=== PATIENT | male | born 1965 | race Caucasian/White ===

== ENCOUNTER 2018-04-30 09:57 | Emergency (ER) | payer SELFPAY ==
[2018-04-30 09:58] VITALS: BP 138/80; PULSE 81; RESP 18; TEMP 36.5; O2SAT 99; BMI 23.1
--- NOTE | 2018-04-30 10:03 | RAD_ITS ---
STUDY: X-RAY - RIGHT HAND REASON FOR EXAM: Male, 53 years old. Pain overlying the third fourth and fifth metacarpals following an injury. TECHNIQUE: 3 view(s) of the hand. COMPARISON: None. FINDINGS: Normal radiocarpal articulation. Normal distal radioulnar joint. Normal visualized carpal bones. Normal carpal articulations Normal carpometacarpal articulation of the thumb. Normal second through fifth carpometacarpal joints. Normal metacarpi. Normal metacarpophalangeal joint of the thumb. Normal interphalangeal joint of the thumb. Normal proximal and distal phalanges of the thumb. Normal metacarpophalangeal joints of the second through fifth fingers. Normal proximal and distal interphalangeal joints of the second through fifth fingers. Normal phalanges of the second through fifth fingers. The soft tissue structures are unremarkable. RAD/Hand Min 3 Views IMPRESSION: Normal x-ray examination of the hand. Electronically Signed: Rick Brown MD at 10:33 EST Tel [phone], Service support ,
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
== END 2018-04-30 10:50 | disposition home or self-care (01) ==
PROVIDERS: Emergency Provider Emergency Medicine; Family Provider Family Medicine; PCP Family Medicine
DX: S60.221A Contusion of right hand, initial encounter (principal); V19.9XXA Pedal cyclist (driver) (passenger) injured in unspecified traffic accident, initial encounter; Y93.55 Activity, bike riding; Y92.9 Unspecified place or not applicable; F17.200 Nicotine dependence, unspecified, uncomplicated
CPT/HCPCS: 73130; 99282

== ENCOUNTER 2024-02-27 23:26 | Emergency (ER) | payer MEDICAID, SELFPAY ==
[2024-02-27 23:26] VITALS: BP 100/56; PULSE 69; RESP 18; TEMP 36.9; O2SAT 100; BMI 21.7
--- NOTE | 2024-02-27 23:37 | RAD_ITS ---
INDICATION: Injury/Pain EXAMINATION/TECHNIQUE: X-RAY - LEFT XR Tibia/Fibula 2 Views COMPARISON: None. FINDINGS: 4 views of the left tib-fib. BONES: Normal anatomic alignment without evidence of fracture or subluxation. No concerning bony lesion or abnormal sclerosis to suggest lesion. JOINTS: No significant degenerative change. SOFT TISSUES: Unremarkable. RAD/Tibia & Fibula 2 Views IMPRESSION: No acute osseous abnormality of the left tib-fib. Electronically Signed: Jeff Rivera MD at 1:37 EDT ,
[2024-02-27] MEDS: HYDROcodone Bitartrate/Apap 5/325 Tablet PO (23:43)
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
[2024-02-28 01:12] VITALS: BP 100/56; PULSE 64; RESP 18; TEMP 36.9; O2SAT 100
== END 2024-02-28 01:15 | disposition home or self-care (01) ==
LOC: ED 02-28 00:33
PROVIDERS: Emergency Provider Surgery; Visit Provider Surgery
DX: S80.12XA Contusion of left lower leg, initial encounter (principal); F17.200 Nicotine dependence, unspecified, uncomplicated; V18.0XXA Pedal cycle driver injured in noncollision transport accident in nontraffic accident, initial encounter
CPT/HCPCS: 73590; 99282

== ENCOUNTER 2024-05-31 11:21 | Emergency (ER) | payer MEDICAID, SELFPAY ==
[2024-05-31 11:22] VITALS: PULSE 61; RESP 20; TEMP 36.4; O2SAT 100; BMI 19.8
[2024-05-31 11:27] VITALS: BP 134/98
--- NOTE | 2024-05-31 11:50 | ED.VIS.BACK ---
HPI History of Present Illness Chief Complaint: Back Informant: patient Onset/Context/Timing Onset: Today and Yesterday Context: Gradual Onset Injury: repetitive motion Timing: Continuous Quality: Sharp Location: Lumbar Current Severity: Moderate Maximum Severity: Moderate Associated Symptoms Associated Symptoms: Negative for Numbness, Tingling, Radiation to Right Leg, Radiation to Left Leg, Fever, Abdominal Pain, Dysuria, Unable to Ambulate, Unable to Transfer, Urinary Retention, Urinary Incontinence, Constipation or Fecal Incontinence Narrative Narrative: 59-year-old male no seen past medical history. No prior back surgery. Has been shoveling snow earlier in the week and since has developed lower back pain. Worse with movement. No fall or trauma. No fever. No bowel or bladder retention or incontinence. States his back just feels tight. It does not radiate to his legs. He denies any weakness or numbness in his legs. Prior similar symptoms: No Recent Illness/Hospitalization: No PFSH PFSH Medical History no medical history no medical history Home Medications ?Medication ?Instructions ?Recorded ?Last Taken ?Type metaxalone 800 mg tablet 800 mg PO TID 7 days #21 tabs 05/31/24 Unknown Rx Allergy/AdvReac Type Severity Reaction Status Date / Time No Known Allergies Allergy Verified 05/31/24 11:22 Social History Smoking Status: Current every day smoker tobacco type: cigarettes ROS ROS ED ROS Narrative Denies recent illness. Constitutional Constitutional ED: Denies chills or fever(s) Eyes Eyes: Denies blurry vision ENT ENT ED: Denies ear pain Cardiovascular Cardiovascular: Denies chest pain Respiratory/Chest Respiratory/Chest: Denies dyspnea or dyspnea on exertion Gastrointestinal Gastrointestinal: Denies abdominal pain Genitourinary Genitourinary ED: Denies dysuria or hematuria Musculoskeletal Musculoskeletal: Reports back pain; Denies arthralgias, myalgias or neck pain Integumentary Denies abscess or Abrasions Neurologic Neurologic: Denies headache(s) Psychiatric Psychiatric: Denies anxiety or depression Endocrine Endocrinology: Denies cold intolerance or heat intolerance Hematologic/Lymphatic Hematologic/Lymphatic: Denies easy bleeding, easy bruising or lymphadenopathy Allergic/Immunologic Allergic/Immunologic ED: Denies mouth swelling, tongue swelling or urticaria EXAM Physical Exam Narrative Exam Narrative: 59-year-old male sitting upright in bed. Vital signs are stable afebrile. Significant other with him. H EENT exam pupils round react light. Motions are intact. Mytrex membranes. Neck nontender. Lungs clear equal symmetrical. Heart regular rate and rhythm rate about 60 no murmur. Chest wall ribs nontender. Abdomen is soft, nontender, nondistended, normal bowel sounds without peritoneal signs. Patient moving all 4 extremities. Neurovascularly intact. 5 out of 5 mri special procedures technologist strength. Dorsi plantarflexion intact. Negative straight leg raise bilaterally. No cauda equina. No saddle anesthesia. Normal medial thigh sensation. Neurologically is awake and alert no focal motor deficits. No loss of sensation. Back he has reproducible pain along the lumbar spine and paralumbar soft tissue. No signs of ecchymosis or bruising no redness or warmth. Const Vital Signs: 05/31/24 11:22 05/31/24 11:27 Temperature 97.5 F L Temperature Source Axillary Pulse Rate 61 Respiratory Rate 20 H Blood Pressure 134/98 H Blood Pressure Mean 110 Pulse Ox 100 Oxygen Delivery Method Room Air Positive well nourished and well developed; Negative for obese, cachectic, contractures or unkempt General Appearance ED: well developed and NAD; Negative for unkempt, cachectic, contractures or pallor Nutritional Appearance: Negative for cachectic or obese HEENT Reports moist mucous membranes Negative for trauma or tenderness Eyes PERRL and EOMs intact bilaterally Neck no lymphadenopathy, supple and no JVD General: Negative for tenderness Thyroid: Negative for other Resp normal respiratory effort and clear to auscultation bilaterally Effort and Inspection: Negative for pain with movement Auscultation: Negative for rales, rhonchi, wheezes or diminished lung sounds Cardio regular rate, regular rhythm, S1 normal heart sound, S2 normal heart sound and no murmurs Palpation: Negative for palpable S3 Rate: Negative for bradycardia or tachycardic Rhythm: Negative for abnormal rhythm GI normal to inspection, nondistended, normoactive bowel sounds, soft to palpation, non-tender, non-distended and no masses Palpation: Negative for tender, guarding or rebound tenderness present Back/Spine Negative for normal to inspection or no thoracic nor lumbar tenderness Back/Spine Narrative: Lumbar and paralumbar soft tissue tenderness. No ecchymosis or bruising. No redness or warmth. General Back: Negative for CVA tenderness Cervical Spine: Negative for cervical spine tenderness Thoracic Spine / Upper Back: Negative for paraspinal muscle tenderness Lumbar Spine / Lower Back: straight leg raise negative bilaterally Extremity normal to inspection and no clubbing, cyanosis or edema Extremity Narrative: No cauda equina. Normal strength. Normal sensation. No saddle anesthesia. General Extremety ED: Negative for edema or tenderness General Extremity: Negative for edema Neuro oriented x3 and no sensory deficits noted Sensorium / Orientation: alert; Negative for confused, lethargic or stuporous Motor Exam: strength 5/5 throughout Psych mental status grossly normal Appearance: Negative for unkempt Skin no rashes or lesions noted and no wounds General Skin Exam: Negative for jaundice or pallor Lesions: No lesion noted Rashes: No rashes noted Trauma: Negative for abrasion or puncture Wounds: Negative for wounds noted MDM MDM MDM Narrative Medical decision making narrative: 59-year-old male with lumbar strain muscle spasm on his lower back from shoveling snow. There is been no trauma I do not think he needs x-rays. There is no signs of cauda equina or acute disc there is no radiation to his legs or weakness or numbness. I do not think he needs an MRI. He does not need labs. I be treated with IM morphine and Toradol. P.o. Zofran. And reassessed. Repeat exam patient doing well at 12:55 PM. He feels much better after the pain medication. Again his lower extremities are neurovascularly intact. His exam otherwise is unchanged and he feels much better. He was able to ambulate to the restroom. I discussed with both he and his . They are comfortable him being discharged home. Motrin and Tylenol for pain. Hot shower, warm bath and massage. Skelaxin and follow-up as needed. History & Record Review Discussion w/independent historian: Patient and Family Discharge Plan Triage Chief Complaint: Back ED Provider: Mak Myers Dx/Rx/DC Orders Clinical Impression: Acute lumbar myofascial strain, Back muscle spasm Instructions: ED Back Pain (Acute or Chronic), ED Back Spasm, No Trauma, ED Back Sprain/Strain Prescriptions: New metaxalone 800 mg tablet 800 mg PO TID 7 Days Qty: 21 0RF Primary Care Provider: Care Physician,No Primary Referrals: Yung Rodas MD [Med Staff - Seamer Operator] - 1 Week if not improving Care Physician,No Primary [Primary Care Provider] - Activity Restrictions/Additional Instructions: The supplements no strained your lower back causing muscle spasms. Hot shower, warm bath, massage. Motrin for pain and inflammation and Tylenol. The muscle relaxant Skelaxin 3 times a day. You will not notice a big difference for 2 to 3 days and it should start improving greatly. Follow-up with local primary care physician if not improving or return if worse. Do not drink or drive today because of your pain medication we gave you in the emergency department. Print Language: Swazi Disposition Disposition: Home, Self Care
[2024-05-31] MEDS: Ondansetron ODT 4 MG Tablet PO (11:57)
[2024-05-31] MEDS: morphine 10 MG/ML Syringe IM (11:58)
[2024-05-31] MEDS: Ketorolac 60 MG/2 ML Vial IM (11:59)
== END 2024-05-31 13:07 | disposition home or self-care (01) ==
PROVIDERS: Emergency Provider Emergency Medicine; Visit Provider Emergency Medicine
DX: S39.012A Strain of muscle, fascia and tendon of lower back, initial encounter (principal); M62.830 Muscle spasm of back; X50.9XXA Other and unspecified overexertion or strenuous movements or postures, initial encounter; Y93.H1 Activity, digging, shoveling and raking; F17.210 Nicotine dependence, cigarettes, uncomplicated
CPT/HCPCS: 96372; 99285; A4216

== ENCOUNTER 2024-11-09 14:48 | Emergency (ER) | payer MEDICAID, SELFPAY ==
[2024-11-09 14:49] VITALS: BP 107/82; PULSE 72; RESP 18; TEMP 37.1; O2SAT 98; BMI 23.1
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
--- NOTE | 2024-11-09 15:28 | CT_ITS ---
PROCEDURE: ABDOMEN/PELVIS W IV CONT ONLY 11/09/2024 REASON FOR EXAM: ABDOMINAL PAIN TECHNIQUE: ABDOMEN/PELVIS W IV CONT ONLY Coronal and Sagittal reconstruction series were provided. CONTRAST: 100 mL of Isovue 370 One or more dose reduction techniques were used (e.g., Automated exposure control, adjustment of the mA and/or kV according to patient size, use of iterative reconstruction technique. RADIATION DOSE SUMMARY: DLP: 562 mGycm COMPARISON: None FINDINGS: Limited sections of the lung bases demonstrate no focal pulmonary mass or consolidations. Right base subsegmental atelectasis. The liver, spleen, pancreas, and both adrenal glands demonstrate no acute findings. 1.4 x 1.2 cm cyst within the liver. Additional smaller hypodensities are noted throughout the liver too small to accurately characterize. Hepatomegaly to 17.5 cm. The gallbladder is unremarkable. The stomach is unremarkable. Scattered small bowel loop inflammation predominantly about the left hemidiaphragm may reflect enteritis. No bowel obstruction. The appendix is not clearly identified, although there are no secondary signs of appendicitis. No colonic obstruction. There is no free air or significant free fluid. No hydronephrosis. 1.3 cm cyst within the inferior pole of the right kidney. No renal stones. Extensive thickened urinary bladder wall which may reflect cystitis vs nondistention; consider correlation with urinalysis. The pelvic structures are intact. There is no solid pelvic mass. Calcifications and hydrocele within bilateral testicular fossa/postoperative changes. No significant lymphadenopathy. The aorta and IVC demonstrate no acute findings. Mild atherosclerosis of the abdominal vasculature. Mild anterior wedge deformity of the L1 vertebral body of indeterminate acuity. Otherwise no acute osseous fractures or dislocations. CT/Abdomen/Pelvis W IV Cont ONLY IMPRESSION: Extensively thickened urinary bladder wall which may reflect cystitis vs nondis tention; consider correlation with urinalysis. Scattered small bowel loop inflammation predominantly about the left hemidiaphr agm may reflect enteritis. No bowel obstruction. Reading Location: [id number]
--- NOTE | 2024-11-09 15:30 | EDS_ITS ---
HPI History of Present Illness Chief Complaint: Male Pain/Injury Informant: patient Pain Onset: Days (4) Context: Gradual Onset Timing: Continuous Worsened by: Coughing, movement, standing Relieved by: Rest Narrative Narrative: Patient presents with inguinal hernias that have been getting worse over the past 4 days. Patient states his pain is worse with standing. Patient states that he notices increased swelling in his inguinal area whenever he stands up. Patient states his pain is worse with coughing and with movement. Patient describes her pain as aching. Patient states it is better with rest and laying flat. Patient states it is worse on the left than the right but it is in both inguinal areas. Patient denies any fevers but admits to some subjective chills. Patient denies any nausea or vomiting. PFSH PFSH Medical History no medical history no medical history Home Medications ?Medication ?Instructions ?Recorded ?Last Taken ?Type metaxalone 800 mg tablet 800 mg PO TID 7 days #21 tab s 05/31/24 Unknown Rx Allergy/AdvReac Type Severity Reaction Status Date / Time No Known Allergies Allergy Verified 11/09/24 14:50 Surgical History Hx of appendectomy Social History (Updated 11/09/24 @ 15:59 by Anahy Solis) household members: significant other current occupational status: employed Smoking Status: Current every day smoker tobacco type: cigarettes substance use type: marijuana ROS ROS ED Constitutional Constitutional ED: Reports chills and subjective; Denies fever(s) Eyes Eyes: Denies blurry vision or change in vision ENT ENT ED: Denies rhinorrhea or sore throat Cardiovascular Cardiovascular: Denies chest pain or palpitations Respiratory/Chest Respiratory/Chest: Denies cough or dyspnea Gastrointestinal Gastrointestinal: Denies nausea or vomiting Genitourinary Genitourinary ED: Denies dysuria or hematuria Musculoskeletal Musculoskeletal: Denies back pain or neck pain Integumentary Denies abscess or rash Neurologic Neurologic: Denies headache(s) or weakness Allergic/Immunologic Allergic/Immunologic ED: Denies mouth swelling or urticaria EXAM Physical Exam Const Vital Signs: 11/09/24 14:49 Temperature 98.7 F Temperature Source Oral Pulse Rate 72 Respiratory Rate 18 Blood Pressure 107/82 H Blood Pressure Mean 90 Pulse Ox 98 Positive well nourished and well developed General Appearance ED: well developed and NAD HEENT Reports moist mucous membranes normocephalic and atraumatic Neck supple and no JVD Resp normal respiratory effort and clear to auscultation bilaterally Cardio regular rate and regular rhythm GI non-distended Palpation: soft Narrative: There is tenderness over the inguinal canals bilaterally. There are no incarcerated hernias palpated. There are inguinal hernias palpated bilaterally but they are easily reduced. Extremity normal to inspection Neuro oriented x3, CN's II-XII intact bilaterally, moves all extremities, no focal motor deficits and no sensory deficits noted Sensorium / Orientation: alert Motor Exam: strength 5/5 throughout Psych mental status grossly normal MDM MDM MDM Narrative Medical decision making narrative: Differential diagnosis includes incarcerated hernia, strangulated hernia, bowel obstruction, dehydration, electrolyte abnormality, and urinary tract infection. CT scan of the abdomen and pelvis will be obtained to assess for bowel obstruction, and inguinal hernias. CBC will be obtained to assess for leukocytosis and anemia. Basic metabolic profile will be obtained to assess for electrolyte abnormality and renal function. Urinalysis will be obtained to ass ess for urinary tract infection and hematuria. Lab Data Attestation: I reviewed the patient's lab results. Lab results narrative: CBC was reviewed. There is a mild anemia with a hemoglobin of 12.1 and hematocrit 34.5. Basic metabolic profile was reviewed and was essentially within normal limits. Urinalysis was reviewed. There is no evidence of urinary tract infection or hematuria. Labs: Laboratory Results - last 24 hr 11/09/24 11/09/24 15:54 15:58 WBC 5.3 RBC 3.70 L Hgb 12.1 L Hct 34.5 L MCV 93.2 MCH 32.7 H MCHC 35.1 RDW Std Deviation 45.0 H RDW Coeff of Mirtha 13.2 Plt Count 188 MPV 8.8 Immature Gran % (Auto) 0.400 Neut % (Auto) 57.4 Lymph % (Auto) 31.5 [place] % (Auto) 7.7 Eos % (Auto) 2.4 Baso % (Auto) 0.6 Absolute Neuts (auto) 3.1 Absolute Lymphs (auto) 1.68 Nucleated RBC % 0 Sodium 138 Potassium 3.3 Chloride 106 Carbon Dioxide 22.7 Anion Gap 9 BUN 12 Creatinine 0.86 Estim Creat Clear Calc 110.10 Est GFR (MDRD) Non-Af 98 BUN/Creatinine Ratio 13.3 Glucose 119 H Calcium 8.6 Urine Color Yellow Urine Clarity Sl. Cloudy Urine pH 6.0 Ur Specific [place] 1.030 Urine Protein 30 H Urine Glucose (UA) Normal Urine Ketones Negative Urine Occult Blood 10 H Urine Nitrite Negative Urine Bilirubin Negative Urine Urobilinogen 1 H Ur Leukocyte Esterase 25 H Urine RBC 0-5 SEEN Urine WBC 0-5 SEEN Ur Squamous Epith Cells 0-5 SEEN Urine Bacteria 1+ Urine Mucus 3+ Radiography Diagnostic Testing: Clinical Impression(s) from Imaging Studies Abdomen/Pelvis CT 11/09/24 15:28 IMPRESSION: Extensively thickened urinary bladder wall which may reflect cystitis vs nondistention; consider correlation with urinalysis. Scattered small bowel loop inflammation predominantly about the left hemidiap hragm may reflect enteritis. No bowel obstruction. Reading Location: [facility] CT scan of the abdomen and pelvis was obtained. There is a thickened urinary bladder which may reflect cystitis or nondistention. There is small bilateral inflammation of the left hemidiaphragm that may reflect enteritis. There is no evidence of obstruction. There are no inguinal hernias noted. This was interpreted by the radiologist and was also independently reviewed by myself. Treatment and Re-Evaluation Narrative: Patient was given IV fluids. Patient was advised of his findings. Patient is feeling better on reevaluation. Patient was advised that he does have bilateral inguinal hernias but these are easily reduced. Patient does not require surgery at this time. Patient was given a referral for follow-up as an outpatient. Patient understood and was agreeable with the plan. All questions were answered. Discharge Plan Triage Chief Complaint: Male Pain/Injury ED Provider: Zach Miller Dx/Rx/DC Orders Clinical Impression: Inguinal hernia, Tobacco use Instructions: ED Hernia (Adult) Prescriptions: No Action metaxalone 800 mg tablet 800 mg PO TID 7 Days Qty: 21 0RF Primary Care Provider: Care Physician,No Primary Referrals: Danny Palacios MD [Med Staff - Active Staff] - 5-7 Days Care Physician,No Primary [Primary Care Provider] - Print Language: Vietnamese Disposition Disposition: Home, Self Care
[2024-11-09] MEDS: 0.9% Normal Saline (1000mL) 1,000 ML 1000 ML IV (15:52)
[2024-11-09 16:01] LABS: Absolute Lymphocyte Count 1.68 X10^3/uL (0.83-4.51); Absolute Neutrophil Count 3.1 X10^3/uL (2.0-7.7); Basophil# 0.03 X10^3/uL; Basophil% 0.6 % (0-1); Eosinophil# 0.13 X10^3/uL; Eosinophils% 2.4 % (0-5); Hematocrit 34.5 % (40-54); Hemoglobin 12.1 g/dL (13.0-16.5); Lymphocyte # 1.68 X10^3/ul (0.83-4.51); Lymphocyte % 31.5 % (19-41); Mean Corp Hgb Conc 35.1 g/dL (32-36); Mean Corpuscular Hgb 32.7 pg (27.0-32.0); Mean Corpuscular Volume 93.2 fL (80-94); Mean Platelet Vol. 8.8 fl (6.2-12.0); Monocyte# 0.41 X10^3/uL; Monocyte% 7.7 % (0-10); NRBC Flagged by Analyzer 0 % (0-5); Neutrophil # 3.07 X10^3/uL (2.7-7.7); Neutrophil % 57.4 % (47-70); Platelet Count 188 K/mm3 (150-450); RBC Distribution Width CV 13.2 % (11.6-14.6); White Blood Count 5.3 K/mm3 (4.4-11.0)
[2024-11-09 16:03] LABS: Color, Urine Yellow (Yellow); Glucose, Dipstick Normal (Normal); Ketone-Dipstick Negative (Negative); Leukocyte Esterase-Dipstick 25 /ul (Negative); Nitrite-Dipstick Negative (Negative); Occult Blood-Urine 10 /ul (Negative); Protein-Dipstick 30 mg/dl (Negative); Urine Bilirubin Dipstick Negative (Negative); Urine Clarity Sl. Cloudy (Clear); Urine Urobilinogen 1 mg/dl (Normal)
[2024-11-09 16:09] LABS: Bacteria 1+ /hpf (None Seen); Mucous, Urine 3+ /hpf (<or=2+); Red Blood Cells-Urine 0-5 SEEN /hpf (0-5); Squamous Epithelial Cells - UA 0-5 SEEN /hpf (0-5); White Blood Cells 0-5 SEEN /hpf (0-5)
[2024-11-09 16:29] LABS: Anion Gap 9 (5-15); BUN 12 mg/dL (4-19); BUN/Creat Ratio 13.3 RATIO (10-20); Calcium,Total 8.6 mg/dL (7.6-11.0); Carbon Dioxide 22.7 mmol/L (21.0-32.0); Chloride 106 mmol/L (98-108); Creatinine, Serum 0.86 mg/dL (0.70-1.20); EST Glomerular Filtration Rate 98 (>60); Glucose 119 mg/dL (70-99); Potassium 3.3 mmol/L (3.3-5.1); Sodium Level 138 mmol/L (133-145)
--- NOTE | 2024-11-09 17:00 | CM.ED ---
Social Work Date of referral: 11/09/24 Reason for referral: No Primary Care Physician PCP) on file Referred by: GEORGES Parks, HOWIE Patient provided consent to social work visit. Patient confirmed that he is not established with a PCP. Can Line Examiner provided patient with a written hand-out for [facility] which patient expressed his appreciation for. No other questions/needs requested at this time. GEORGES Parks, VALVE GRINDER
[2024-11-09 18:17] VITALS: BP 104/80; PULSE 71; RESP 16; TEMP 37.1; O2SAT 98
== END 2024-11-09 18:18 | disposition home or self-care (01) ==
PROVIDERS: Emergency Provider Emergency Medicine; Visit Provider Emergency Medicine
DX: K40.20 Bilateral inguinal hernia, without obstruction or gangrene, not specified as recurrent (principal); F17.210 Nicotine dependence, cigarettes, uncomplicated; Z90.49 Acquired absence of other specified parts of digestive tract
CPT/HCPCS: 74177; 80048; 81001; 85025; 96360; 96361; 99283; Q9967

== ENCOUNTER 2024-11-25 14:32 | Emergency (ER) | payer MEDICAID, SELFPAY ==
[2024-11-25 14:33] VITALS: BP 127/98; PULSE 75; RESP 18; TEMP 36.5; O2SAT 99; BMI 19.5
--- NOTE | 2024-11-25 15:45 | EDS_ITS ---
HPI HPI - GI History of Present Illness Chief Complaint: Other, Pain/Inj Informant: patient and spouse/S.O. Abdominal Pain/Flank Pain Onset: Weeks Context: Gradual Onset Timing: Intermittent Quality: Sharp and Stabbing Location: - (Bilateral inguinal hernias pain.) Current Severity: Mild Maximum Severity: Moderate Narrative Narrative: 59-year-old male prior appendectomy. 3-week history of bilateral inguinal hernias. He has been seen in the emergency department had a CAT scan and labs which were unremarkable. CAT scan showed the hernias. Patient followed up with Dr. Felder of general surgery. They wanted him to be evaluated also by urology for some bladder thickness. He is unable to get into see urologist due to his insurance. Today's returning complaining of groin pain. No vomiting. No abdominal distention. Prior similar symptoms: Yes Recent Illness/Hospitalization: No PFSH PFSH Medical History Bladder wall thickening Bilateral inguinal hernia without obstruction or gangrene Home Medications ?Medication ?Instructions ?Recorded ?Last Taken ?Type hydrocodone-acetaminophen 5-325mg 1 tab PO Q4H PRN jeffrey n 7 days #14 11/25/24 Unknown Rx 5mg-325mg tabs Allergy/AdvReac Type Severity Reaction Status Date / Time No Known Allergies Allergy Verified 11/21/24 08:13 Surgical History Hx of appendectomy Social History household members: significant other current occupational status: employed Smoking Status: Current every day smoker tobacco type: cigarettes substance use type: marijuana ROS ROS ED ROS Narrative Denies any recent illness. Constitutional Constitutional ED: Denies chills or fever(s) Cardiovascular Cardiovascular: Denies chest pain Respiratory/Chest Respiratory/Chest: Denies cough or dyspnea Gastrointestinal Gastrointestinal: Reports abdominal pain and other Details: Inguinal hernia pain occasionally. Genitourinary Genitourinary ED: Denies dysuria or hematuria Musculoskeletal Musculoskeletal: Denies arthralgias or back pain Integumentary Denies abscess Neurologic Neurologic: Denies headache(s) Psychiatric Psychiatric: Denies anxiety Endocrine Endocrinology: Denies polydipsia Hematologic/Lymphatic Hematologic/Lymphatic: Denies easy bleeding Allergic/Immunologic Allergic/Immunologic ED: Denies mouth swelling, tongue swelling or urticaria EXAM Physical Exam Narrative Exam Narrative: Well-appearing 59-year-old male. Vital signs stable afebrile. He is in no acute distress. H EENT exam pupils round react light. Mytrex membranes. Lungs clear to auscultation bilaterally. Heart regular rhythm rate about 75 no murmur. Chest wall ribs nontender. Abdomen soft, nondistended normal bowel sounds without peritoneal signs. External exam unremarkable. Bilateral descended testicles nontender. Circumcised penis. When he stands he has bilateral inguinal hernias but they easily reduce spontaneously and manually. Neither is incarcerated or strangulated. He has tenderness to both canals. Back nontender. Moving all 4 extremities. Nontender no edema. He is awake and alert. Answering questions following commands. Const Vital Signs: 11/25/24 14:33 Temperature 97.7 F L Temperature Source Oral Pulse Rate 75 Respiratory Rate 18 Blood Pressure 127/98 H Blood Pressure Mean 107 Pulse Ox 99 Oxygen Delivery Method Room Air Positive well nourished and well developed; Negative for obese, cachectic, contractures or unkempt General Appearance ED: well developed and NAD; Negative for unkempt, cachectic or contractures Nutritional Appearance: Negative for cachectic or obese HEENT Reports moist mucous membranes normocephalic and atraumatic Eyes PERRL and EOMs intact bilaterally Neck no lymphadenopathy, supple and no JVD Resp normal respiratory effort and clear to auscultation bilaterally Cardio regular rate, regular rhythm, S1 normal heart sound, S2 normal heart sound and no murmurs Rate: Negative for bradycardia or tachycardic Rhythm: Negative for abnormal rhythm GI non-tender, non-distended and no masses GI Narrative: Bilateral inguinal hernias. Spontaneously reduced. No incarceration. No s trangulation. No abdominal obstruction. Mild tenderness in the inguinal canals. Auscultation: normoactive bowel sounds Palpation: soft and tender Back/Spine no CVA tenderness General Back: Negative for CVA tenderness Cervical Spine: Negative for cervical spine tenderness Thoracic Spine / Upper Back: Negative for thoracic spinal tenderness Lumbar Spine / Lower Back: Negative for lumbar spinal tenderness Extremity full ROM Neuro CN's II-XII intact bilaterally and moves all extremities Sensorium / Orientation: alert, oriented to person, oriented to place and oriented to time Motor Exam: strength 5/5 throughout Psych mental status grossly normal and thought process normal Appearance: Negative for unkempt Skin no wounds Lesions: no lesions Rashes: no rashes MDM MDM MDM Narrative Medical decision making narrative: 59-year-old male bilateral inguinal hernia spontaneously reduced. There is nothing else to do I reviewed his recent labs and CT. He needs to follow-up with general surgery and get this repaired. You are written for [place] for pain. Otherwise Motrin and Tylenol. He was warned of things to watch for for either an incarcerated, strangulated hernias or bowel obstruction. Patient is comfortable being discharged. History & Record Review Discussion w/independent historian: Patient and Family Additional record(s) reviewed:: Prior inpatient record, Prior outpatient record, Prior ED visit and Prior labs Discharge Plan Triage Chief Complaint: Other, Pain/Inj ED Provider: Mak Myers Dx/Rx/DC Orders Clinical Impression: Bilateral inguinal hernia Instructions: ED Hernia (Adult) Prescriptions: New hydrocodone-acetaminophen 5-325 mg tablet 1 tab PO Q4H PRN (Reason: pain) 7 Days Qty: 14 0RF Primary Care Provider: Care Physician,No Primary Referrals: Danny Palacios MD [Med Staff - Active Staff] - As soon as possible Care Physician,No Primary [Primary Care Provider] - Activity Restrictions/Additional Instructions: Motrin Tylenol for pain. Underwood for more severe pain. If the hernia is pop out lie flat in bed put an ice pack on and this should go back in. Worsening pain, distended abdomen or intractable vomiting return. Call and follow-up with your surgeon Dr. Geiger to get this repaired as soon as possible. Print Language: Nigerian Disposition Disposition: Home, Self Care
[2024-11-25] MEDS: HYDROcodone Bitartrate/Apap 5/325 Tablet PO (16:03)
[2024-11-25 16:04] VITALS: BP 119/74; PULSE 81; RESP 15; TEMP 36.4; O2SAT 98
== END 2024-11-25 16:05 | disposition home or self-care (01) ==
LOC: ED 15:49
PROVIDERS: Emergency Provider Emergency Medicine; Visit Provider Emergency Medicine
DX: R10.9 Unspecified abdominal pain (principal); K40.20 Bilateral inguinal hernia, without obstruction or gangrene, not specified as recurrent; F17.210 Nicotine dependence, cigarettes, uncomplicated; Z90.49 Acquired absence of other specified parts of digestive tract
CPT/HCPCS: 99282

== ENCOUNTER 2024-12-01 08:26 | Day surgery (SDC) | payer MEDICAID, SELFPAY ==
[2024-12-01] VITALS (10 sets, daily range): BP systolic 116–156; BP diastolic 77–101; PULSE 48–69; RESP 16–20; TEMP 36.6–36.8; O2SAT 97–100
--- NOTE | 2024-12-01 08:42 | EKG12_ITS ---
Test Reason : PREOP Blood Pressure : */* mmHG Vent. Rate : 49 BPM Atrial Rate : 49 BPM P-R Int : 182 ms QRS Dur : 82 ms QT Int : 428 ms P-R-T Axes : 80 3 65 degrees QTcB Int : 386 ms Sinus bradycardia Otherwise normal ECG When compared with ECG of 23-Dec-2015 10:24, No significant change was found Confirmed by Khurram Galeano ([id number]), film and video editor TRU PANDA ([id number]) on 12/03/2024 2:00:49 PM Referred By: Danny Palacios Confirmed By: Khurram Galeano
[2024-12-01] MEDS: Lactated Ringers 1,000 ML 15 ML IV (09:05)
--- NOTE | 2024-12-01 09:17 | PRE.ANES_ITS ---
ASA Classification* ASA Classification ASA Classification: 2 Assessment & Plan Anesthesia* Anesthesia Assessment Anesthesia Assessment: Discussed sedation and/or anesthesia options, risks, benefits, and alternatives with patient/parents/legal guardian/POA. Questions invited. The patient/parents/legal guardian/POA seems to understand and agrees to proceed with anesthesia plan. Reviewed the physical assessment, medical history, allergy history and patient home medications list prior to surgery/procedure/anesthetic and documented any changes. Performed airway and anesthesia risk assessments. Anesthesia Type Anesthesia Type: General History Source History Obtained from:: Patient and Chart Anesthesia Focused Assessment* Temperature: 98.3 F Pulse Rate: 55 Blood Pressure: 116/88 Respiratory Rate: 16 Pulse Ox: 99 Oxygen Delivery Method: Room Air Airway Assessment Mouth opens: >3 cm Mallampati Score: II Teeth Condition: Loose (Tooth #8 is loose.) and Missing (Multiple missing teeth) Neck Range of motion (ROM): Limited ROM (Slight Decrease) Labs Anesthesia Preop lab: CBC WBC 5.3 K/mm3 (4.4-11.0) 11/09/24 15:54 11/09/24 RBC 3.70 M/mm3 (4.6-6.2) L 11/09/24 15:54 11/09/24 Hgb 12.1 g/dL (13.0-16.5) L 11/09/24 15:54 5 Hct 34.5 % (40-54) L 11/09/24 15:54 11/09/24 Plt Count 188 K/mm3 (150-450) 11/09/24 15:54 11/09/24 CHEMISTRY Potassium 3.3 mmol/L (3.3-5.1) 11/09/24 15:54 11/09/24 Sodium 138 mmol/L (133-145) 11/09/24 15:54 11/09/24 Magnesium 2.0 mg/dL (1.8-2.4) 12/22/15 11:22 12/22/15 BUN 12 mg/dL (4-19) 11/09/24 15:54 11/09/24 Creatinine 0.86 mg/dL (0.70-1.20) 11/09/24 15:54 11/09/24 Glucose 119 mg/dL (70-99) H 11/09/24 15:54 11/09/24 TSH 1.54 uIU/mL (0.358-3.74) 12/22/15 11:22 COAG Pre-Assessment Diagnosis/Proposed Procedure Planned Operative Procedure(s): BILAT LAP ROBOTIC INGUINAL HERNIA WITH MESH Anesthesia History Anesthesia History - manager nicu: Anesthesia History - manager nicu Hx Hospitalization No 11/27/24 12:54 Any Problems With Anesthesia No 11/27/24 12:54 Cholinesterase deficiency No 11/27/24 12:54 You/Your Family Experience No 11/27/24 12:54 fever (hyperthermia) with Relationship Recent Exposure to Contagious No 12/01/24 08:49 Disease Does patient have nerve No 11/27/24 12:54 stimulator Patient instructed to have device shut off --Does patient have Pacemaker No 12/01/24 08:49 or ICD? When Was Last Pacemaker Check QUESTION #4 FULL TEXT: You/Your Family Experience fever (hyperthermia) with Anesthesia Last Oral Intake Last Oral intake: Last Oral Intake NPO since 23:00 12/01/24 08:49 Meds taken in AM with sips of No 12/01/24 08:49 water? Meds patient instructed to take am of surgery PONV PONV - manager nicu: PONV - manager nicu Female No 11/27/24 12:54 HX of Motion Sickness No 11/27/24 12:54 HX of N/V After Surgery No 11/27/24 12:54 Non-Smoker No 11/27/24 12:54 Duration of Surgery greater Yes 11/27/24 12:54 than 60 minutes Number of Risk Factors 1 11/27/24 12:54 PONV Score Low Risk 11/27/24 12:54 Height & Weight Height & Weight: Anesthesia: Height & Weight Height 6 ft 4 in 12/01/24 08:49 Weight: 74.7 kg 12/01/24 08:49 Body Mass Index (BMI) 20.0 12/01/24 08:49 Respiratory Assessment Respiratory Assessment - manager nicu: Respiratory Tract Infection Hx - manager nicu Hx Respiratory Tract Infection No 11/27/24 12:54 STOP Sleep Apnea STOP Sleep Apnea - manager nicu: STOP Sleep Apnea - manager nicu Hx Hypertension No 11/27/24 12:54 Hx Sleep Apnea No 11/27/24 12:54 CPAP BIPAP Do you snore loudly (louder No 11/27/24 12:54 than talking or can be heard Do you often feel tired/ No 11/27/24 12:54 fatigued/ sleepy during daytime? Has anyone observed you stop No 11/27/24 12:54 breathing during sleep? STOP Results Negative 11/27/24 12:54 QUESTION #5 FULL TEXT : Do you snore loudly (louder than talking or can be heard through closed doors)? 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 Specify any problems Hx of Preganancy in last 3 N/A 11/27/24 12:54 Months Nurse Filling Out Transfusion DSCHRIBER 11/27/24 12:54 & Questions: Date: 11/27/24 11/27/24 12:54 Time: 12:55 11/27/24 12:54 Patient unable to answer at this time (ie. confused, unrespo /Reproduction History /Reproductive History - manager nicu: /Reproductive Hx- manager nicu Hx Now No 11/27/24 12:54 Gestational Age (in weeks): EDC: Hx Hx Para Hx Section SAB No 11/27/24 12:54 Active Medications Active Medications: Current Medications Generic Name Dose Route Start Last Admin Trade Name Freq PRN Reason Stop Dose Admin Cefazolin Sodium 2 gm/ Sodium 110 mls @ 200 mls/hr 12/01/24 11:00 Chloride IV 12/01/24 11:32 INTRAOP ONE Lactated Ringer's 1,000 mls @ 15 mls/hr 12/01/24 08:45 12/01/24 09:05 IV 15 mls/hr .Q48H TRICIA Administration PFSH Medical History History of echocardiogram History of stress test Anxiety Marijuana use Restless legs Back pain Shortness of breath on exertion Leg cramps Smoker Bladder wall thickening Bilateral inguinal hernia without obstruction or gangrene Home Medications ?Medication ?Instructions ?Recorded ?Last Taken ?Type hydrocodone-acetaminophen 5-325mg 1 tab PO Q4H PRN jeffrey n 7 days #14 11/25/24 Unknown Rx 5mg-325mg tabs Allergy/AdvReac Type Severity Reaction Status Date / Time No Known Allergies Allergy Verified 12/01/24 08:48 Surgical History Hx of appendectomy Social History household members: significant other current occupational status: employed Smoking Status: Current every day smoker (Patient smoked today.) tobacco type: cigarettes substance use type: marijuana Review of Systems (Anesthesia) ROS Narrative System reviewed and no additional complaints, except as documented.
--- NOTE | 2024-12-01 09:34 | PCM.HP.STD ---
HPI - General General Date of Admission: 12/01/24 Date of Service: 12/01/24 Chief Complaint: Bilateral inguinal hernias HPI Narrative LOW CONTRERAS, is a 59 M who presents today for elective bilateral inguinal hernia repairs with mesh. Patient was seen through the ER with groin pain. He was diagnosed with bilateral hernias. He also on CT was found to have some thickening of his bladder. We try to get him into see our local urologist however he does not take his insurance. We made another referral to other nearby urologist and patient and his states that they are unable to travel outside of [place]. Ideally I was hoping to have his bladder issue addressed prior to any hernia repair however patient called stating that he was having a lot of pain and wanted the surgery done MEHDI. He presents today for that surgery [facility] Medical History History of echocardiogram History of stress test Anxiety Marijuana use Restless legs Back pain Shortness of breath on exertion Leg cramps Smoker Bladder wall thickening Bilateral inguinal hernia without obstruction or gangrene Home Medications ?Medication ?Instructions ?Recorded ?Last Taken ?Type hydrocodone-acetaminophen 5-325mg 1 tab PO Q4H PRN pain 7 days #14 11/25/24 Unknown Rx 5mg-325mg tabs Allergy/AdvReac Type Severity Reaction Status Date / Time No Known Allergies Allergy Verified 12/01/24 08:48 Surgical History Hx of appendectomy Social History household members: significant other current occupational status: employed Smoking Status: Current every day smoker (Patient smoked today.) tobacco type: cigarettes substance use type: marijuana Vital Signs Vital Signs Vital Signs: 12/01/24 08:49 12/01/24 08:49 12/01/24 09:24 Temperature 98.3 F 98.3 F Temperature Source Temporal Pulse Rate 55 L 55 L Respiratory Rate 16 16 Respiratory Pattern Normal Blood Pressure 116/88 H 116/88 H Blood Pressure Mean 97 Blood Pressure Source Monitor Blood Pressure Position Semi-Fowlers Blood Pressure Location Left Arm Pulse Ox 99 99 Oxygen Delivery Method Room Air Room Air Weight Weight: 164 lb 10.965 oz Body Mass Index (BMI) 20.0 Physical Exam Const alert and oriented x3 Assessment & Plan Assessment/Plan (1) Bilateral inguinal hernia: PLAN: Plan Plan is for robotic bilateral inguinal hernia pair with mesh.
[2024-12-01] MEDS: Bupiv/Epi 0.25% 30 ML Vial (10:26)
--- NOTE | 2024-12-01 11:55 | EX.PCM.DISCH ---
Discharge Instructions Diet Discharge Diet: Light diet - advance as tolerated Activity Discharge Activity: Return to Normal Activity and May Shower May shower in (days): 1 Ice area for (Minutes): 30 Lifting Restrictions: No lifting pushing or pulling more than 20 pounds for 6 weeks Dressing / Incision Call your doctor if your incision/area has: Continuous Slow Oozing, Sudden Increased Bleeding, Increased Pain/ Swelling, Increased Redness, Foul Smelling Discharge and Swelling at the incision site Call your doctor if you observe: Fever of 101 or Higher Cleanse incision/area with: Soap & Water Follow Up Care Please Follow Up With: Danny Palacios MD When: 2 weeks. Please call office to schedule appointment Test Results: Test results from this visit will be discussed in further detail at your follow-up appointment, if applicable. Discharge Plan Admission Primary Reason for Your Visit: Bilateral inguinal hernia repair Attending Provider: Danny Palacios Primary Care Provider: Care Physician,Neetu Primary Instructions Print Language: Occitan Discharge Orders/Prescriptions Prescriptions: New oxycodone 5 mg capsule 5 mg PO Q8H PRN (Reason: pain) 4 Days Qty: 14 0RF Discontinued hydrocodone-acetaminophen 5-325 mg tablet 1 tab PO Q4H PRN (Reason: pain) 7 Days Qty: 14 0RF Referrals / Follow Up: Care Physician,No Primary [Primary Care Provider] - Disposition Disposition (needs filled in before D/C Order can be placed): Home, Self Care
--- NOTE | 2024-12-01 12:01 | PCM.OPRPT ---
Problems Associated Problem List Diagnoses (1) Bilateral inguinal hernia: Procedures Digestive 40xxx-49xxx: 44691-95 Lap ing hernia repair init; bilat Operative Report (Standard) Operative Information Date of Procedure: 12/01/24 Pre-Operative Diagnosis: Bilateral inguinal hernia Post-Operative Diagnosis: Same Surgery/Procedure Performed: Robotic bilateral inguinal hernia repair with mesh survey research center director: Yes Vba Developer: Mango Correia Tasks completed by sales assistant institutional sales: Closing and Other Additional clinical project assistant?: No Type of Anesthesia: General and Local RN Documented Start/Stop Times: Operation Date: 12/01/24 10:00 Case Time Into Pre-Op 12/01/24 08:31 Out of Pre-Op 12/01/24 10:01 Anesthesia Start 12/01/24 10:04 Into Room 12/01/24 10:04 Procedure Start 12/01/24 10:26 Procedure Start Time: 10:26 Procedure Stop Time: 12:05 Select all DRAINS/GRAFTS/IMPLANTS that apply: Implanted device Implanted device details: ProGrip 10 x 15 cm mesh x 2 Special Medications: 2 g Ancef IV preop Estimated Blood Loss: 10 mL Specimen collected: No Description of surgery: The patient is a 59-year-old male who recently presented to my office with bilateral inguinal hernias. I offered him bilateral robotic hernia repairs with mesh. We discussed the details of the planned procedure and he wished to proceed. He was brought to the operating today following informed consent. Preoperative antibiotics were given and a timeout was performed. Patient was brought to the operating room today following informed consent. he was placed supine on the operative table with arms outstretched and arm boards. The abdomen was then prepped and draped in the usual sterile manner. An 8 mm incision was made just above the umbilicus which a 5 mm trocar was placed optically. This was placed without incident. Once in place the abdomen is then fully insufflated with CO2 gas. A 5 mm 0 degree scope was inserted. There were no signs of bowel or vascular injury. Next an 8 mm trocar was placed under direct visualization on the right side of the abdomen. Another 8 mm trocar was placed on the left side of the abdomen also under direct visualization. Finally the original 5 mm trocar at the umbilicus was then switched to a 8 mm trocar. The patient was then placed into Trendelenburg positioning. The da Gay robot was then brought into position and appropriately docked. The camera was inserted through the umbilical trocar. Scissors were placed on the right side, and a grasper was placed in the left. The left-sided hernia was repaired first. This was the hernia that was more symptomatic. The peritoneum overlying the hernia was then incised in a medial to lateral direction using curved scissors and electrocautery. A subperitoneal plane was then developed using blunt dissection. Vidal's ligament was dissected out medially. The hernia sac was dissected free and reduced along with a fairly sizable cord lipoma. The cord structures were spared and dissected free from the hernia sac. Once sufficient dissection was performed a ProGrip 10 x 15 cm mesh was selected. It was placed in antibiotic solution after being trimmed to fit the operative field. It was inserted into the abdomen and laid nicely. The peritoneum was then closed in a running fashion using a V-Loc suture. This closed the peritoneum nicely. Attention was then turned to the right sided hernia repair. The peritoneum was incised in a lateral to medial direction again using electrocautery and scissors. Again a subperitoneal plane was developed using blunt dissection. Vidal's ligament was dissected out medially. The right sided hernia was smaller. The hernia sac was reduced and dissected off of the cord structures. No significant cord lipoma was encountered on the right. Once sufficient dissection was performed another piece of ProGrip 10 x 15 mesh was selected. It was trimmed to size. This was then placed in antibiotic solution and inserted into the abdomen. It was laid in the operative field. This covered over the fascial defect nicely. The peritoneum was closed again with V-Loc suture in a running manner. This closed the peritoneum nicely. The abdomen was then inspected. There were no signs of bowel or vascular injury. Overall hemostasis was excellent throughout the case. Local anesthetic was injected into the incisions at the beginning of the case. The trocars were then removed and the incisions were closed with 4-0 Vicryl. Skin glue was applied as dressing. He was awakened from anesthesia and taken to recovery in good condition. Surgical Findings: Bilateral inguinal hernias Complications Complications: No Admit VTE Documentation VTE Present on Admission: No VTE Mechan Device Prophylaxis: SCD's VTE Pharm Prophylaxis ordered?: No Reason prophylaxis not ordered: Treatment Not Indicated
--- NOTE | 2024-12-01 12:20 | PCM.POST.ANE ---
Anesthesia: Postop Eval I Current Vital Signs Temperature: 98.2 F Pulse Rate: 63 Blood Pressure: 141/77 Respiratory Rate: 20 Pulse Ox: 100 Oxygen Delivery Method: Room Air Assessment Airway patent: Yes Spontaneous unlabored respirations: Yes Mental status: Awake nausea: No Vomiting: No Anesthesia Complication: No Fluid Hydration Crystalloid volume administer (ml): 700 Total IV fluid infused: 700 Progress Note Anesthesia document: Postop Eval 1 completed: Yes
--- NOTE | 2024-12-01 13:39 | POSTOPAN2_ITS ---
Anesthesia Postop Eval I Sum Postop Eval Completion status Anesthesia document: Postop Eval 1 completed: Yes Anesthesia Postop Eval I Summary Anesthesia Postop Eval I Summary: Anesthesia Postop Eval I: Assessment Summary Airway patent Yes 12/01/24 12:21 EDI [email or web address] Spontaneous unlabored Yes 12/01/24 12:21 EDI [email or web address] respirations Mental status Awake 12/01/24 12:21 EDI [email or web address] nausea No 12/01/24 12:21 EDI [email or web address] Vomiting No 12/01/24 12:21 EDI [email or web address] Anesthesia Postop Eval I: Fluid Summary Crystalloid volume administer 700 12/01/24 12:21 EDI [email or web address] (ml) Colloids volume administered ( ml) Blood Product volume administered (ml) Total IV fluid infused 700 12/01/24 12:21 [email or web address] [email or web address] Anesthesia Postop Eval I: Summary Notes Anesthesia Complication No 12/01/24 12:21 EDI [email or web address] Anesthesia Complication Comment: Post-operative progress note Anesthesia: Postop Eval II Evaluation Mental status: Awake and Calm Pain Level: 6 nausea: No Vomiting: No Complications Anesthesia Complication: No
--- NOTE | 2024-12-01 13:39 | PCM.POSTANE2 ---
Anesthesia Postop Eval I Sum Postop Eval Completion status Anesthesia document: Postop Eval 1 completed: Yes Anesthesia Postop Eval I Summary Anesthesia Postop Eval I Summary: Anesthesia Postop Eval I: Assessment Summary Airway patent Yes 12/01/24 12:21 CRITICAL CARE [email or web address] Spontaneous unlabored Yes 12/01/24 12:21 CRITICAL CARE [email or web address] respirations Mental status Awake 12/01/24 12:21 CRITICAL CARE [email or web address] nausea No 12/01/24 12:21 CRITICAL CARE [email or web address] Vomiting No 12/01/24 12:21 CRITICAL CARE [email or web address] Anesthesia Postop Eval I: Fluid Summary Crystalloid volume administer 700 12/01/24 12:21 CRITICAL CARE [email or web address] (ml) Colloids volume administered ( ml) Blood Product volume administered (ml) Total IV fluid infused 700 12/01/24 12:21 CRITICAL CARE [email or web address] Anesthesia Postop Eval I: Summary Notes Anesthesia Complication No 12/01/24 12:21 CRITICAL CARE [email or web address] Anesthesia Complication Comment: Post-operative progress note Anesthesia: Postop Eval II Evaluation Mental status: Awake and Calm Pain Level: 6 nausea: No Vomiting: No Complications Anesthesia Complication: No
== END 2024-12-01 13:52 | disposition home or self-care (01) ==
LOC: SDC 08:27 → AC 08:27
PROVIDERS: Referring Provider Surgery; Visit Provider Surgery
PROC: (CPT 49650; principal; 2024-12-01 09:40)
DX: K40.20 Bilateral inguinal hernia, without obstruction or gangrene, not specified as recurrent (principal); N32.89 Other specified disorders of bladder; F17.210 Nicotine dependence, cigarettes, uncomplicated
CPT/HCPCS: 49650; S2900; 00790; 93005; C1781; J2405